=== PATIENT | female | born 1955 | race Caucasian/White ===

== ENCOUNTER → 2021-01-25 03:10 | Outpatient (CLI) | payer MEDICARE, BC, SELFPAY ==
[2021-01-25 17:35] LABS: SARS-CoV-2 RNA PCR Negative
== END ==
PROVIDERS: PCP Family Medicine; Visit Provider Physician Assistant
DX: R05.9 Cough, unspecified (principal); J02.9 Acute pharyngitis, unspecified; Z20.822 Contact with and (suspected) exposure to COVID-19
CPT/HCPCS: C9803; U0003; U0005

== ENCOUNTER 2022-02-15 06:36 | Outpatient (CLI) | payer MEDICARE, BC, SELFPAY ==
--- NOTE | ~2022-02-15 | MR_ITS ---
EXAMINATION: MR knee LT wo con DATE: 02/15/2022 07:22 INDICATION: Chronic left knee pain. TECHNIQUE: Magnetic resonance imaging (MRI) of the left knee was performed without intravenous contra st. Sequences included axial PD-weighted FS FSE, coronal PD-weighted FSE and PD-weighted FS FSE, sagi ttal PD-weighted FSE, and sagittal T2-weighted FS FSE. COMPARISON: None. FINDINGS: Medial compartment: Medial meniscus is normal. There is shallow partial-thickness cartilage loss of tibial condyle involv ing the central articular surface. There is cartilage surface irregularity of femoral condyle. There are tiny osteophytes. Lateral compartment: Lateral meniscus is normal. There is cartilage surface irregularity of femoral condyle and tibial con dyle. There are tiny osteophytes. Patellofemoral compartment: There is full-thickness cartilage loss of patellar lateral facet with mild subchondral edema-like mar row signal intensity. There is full-thickness cartilage loss of lateral trochlea with mild subchondra l edema-like marrow signal intensity. Osteophytes are noted. Ligaments and tendons: The anterior and posterior cruciate ligaments are normal. Medial collateral ligament and lateral peter ateral ligament complex are normal. There is mild patellar tendinopathy. Fluid: There is a small knee joint effusion. There is a small Jj's cyst. There is mild prepatellar and null perficial infrapatellar bursitis. Osseous/other: There is a 6 mm intraosseous ganglion in proximal tibia adjacent to the attachment of posterior cruci ate ligament. IMPRESSION: 1. Severe chondrosis of patellofemoral compartment and mild chondrosis of medial and lateral compartm ents. 2. Small knee joint effusion. 3. Small Jj's cyst. Reviewed, dictated and finalized at [facility] [employer] IMPRESSION: 1. Severe chondrosis of patellofemoral compartment and mild chondrosis of media l and lateral compartments. 2. Small knee joint effusion. 3. Small Jj's cyst.
== END 2022-02-15 06:37 | disposition home or self-care (01) ==
PROVIDERS: PCP Family Medicine; Visit Provider Orthopaedic Surgery
DX: M25.462 Effusion, left knee (principal); M71.22 Synovial cyst of popliteal space [Baker], left knee
CPT/HCPCS: 73721

== ENCOUNTER → 2022-10-15 07:58 | Outpatient (CLI) | payer MEDICARE, BC, SELFPAY ==
--- NOTE | ~2022-10-15 | MR_ITS ---
MRI of the thoracic spine Clinical History: Pain Technique: Axial T2-weighted and gradient images, and sagittal T1-weighted, T2-weighted, and STIR griselda ges were acquired. Findings: There is no fracture or subluxation of the thoracic spine. Vertebral bodies maintain normal height and alignment. No suspicious bone marrow signal abnormality seen. There are areas of mild darrel ctive marrow signal due to underlying degenerative disc disease, most notably about the T6-T7, T7-T8, and T8-T9 disc spaces. There is focal central disc protrusion at T7-T8, with minimal flattening of the ventral cord. No othe r significant disc bulge or herniation seen. No other areas of spinal canal stenosis or cord compress ion. No abnormal signal seen in the spinal cord. Paravertebral soft tissues are unremarkable. Impression: Focal central disc protrusion at T7-T8, with minimal flattening of the ventral cord at this level. Reviewed, dictated and finalized at [facility]. Impression: Focal central disc protrusion at T7-T8, with minimal flattening of the ventral cord at this level.
--- NOTE | ~2022-10-15 | MR_ITS ---
MRI of the cervical spine Clinical History: Pain Technique: Axial T2-weighted and gradient images, and sagittal T1-weighted, T2-weighted, and STIR griselda ges were acquired. Findings: No acute fracture or subluxation identified. There is anterior fusion from C4 to C5, anteri or plate and fixation screws bridging the C4-C5 disc space. There is mature osseous fusion from C5 to C7, with complete obliteration of the relevant disc spaces. No suspicious bone marrow signal abnorma lity seen. At C2-C3, there is no disc bulge or herniation. No spinal canal stenosis, cord compression, or neural foraminal narrowing. At C3-C4, there is no disc bulge or herniation. No spinal canal stenosis, cord compression, or neural foraminal narrowing. At C4-C5, there is no disc osteophyte complex. There is minimal flattening of the ventral cord. Neura l foramina are preserved bilaterally. At C5-C6 and C6-C7, there is no disc bulge or herniation. No spinal canal stenosis or cord compressio n at these levels. No neural foraminal narrowing evident at these levels. No abnormal signal evident in the spinal cord. Paravertebral soft tissues are unremarkable aside from postoperative change. Impression: Anterior fusion from C4 to C7, as detailed above. Mild flattening of the ventral cord at C4-C5 related to minimal disc osteophyte complex. Reviewed, dictated and finalized at [facility]. Impression: Anterior fusion from C4 to C7, as detailed above. Mild flattening of the ventral cord at C4-C5 related to minimal disc osteophyte complex.
== END ==
PROVIDERS: PCP Family Medicine; Visit Provider Family Medicine
DX: M54.9 Dorsalgia, unspecified (principal); M51.24 Other intervertebral disc displacement, thoracic region; Z98.1 Arthrodesis status
CPT/HCPCS: 72141; 72146

== ENCOUNTER 2023-02-26 11:47 | Outpatient (CLI) | payer MEDICARE, BC, SELFPAY ==
[2023-02-26 15:41] LABS: Hepatitis C Virus Antibody Negative (Negative)
[2023-02-26 15:45] LABS: Vitamin D 25 Hydroxy 61.2 ng/mL
== END 2023-02-26 11:48 | disposition home or self-care (01) ==
PROVIDERS: PCP Family Medicine; Visit Provider Family Medicine
DX: R79.89 Other specified abnormal findings of blood chemistry (principal); Z98.84 Bariatric surgery status; Z11.59 Encounter for screening for other viral diseases
CPT/HCPCS: 36415; 82306; 82607; 82728; 86803